=== PATIENT | male | born 1950 | race Caucasian/White ===

== ENCOUNTER 2017-02-07 23:45 | Emergency (ER) | payer OTHER ==
[~2017-02-07 23:45] MED LIST: ALTA2.5 PO; ALTA5 PO; AMB10 PO; ASAB PO; ASABAYER PO; EFFEXOR XR 75 M75 MG PO; EFFEXXR75 PO; FUROSEMIDE; GLUCOPHXR PO; GLUCPH PO; K-TABS10 MEQ PO; KDUR20 PO; KLOR-CON M2020 MEQ PO; L20 PO; L40 PO; LIPITOR40 PO; LIVALO PO; LOP50 PO; MAGOX4 PO; MIRAPEX250 PO; NITROSTAT0.4 MG SL; NORCO1 TAB PO; PLAVIX PO; RANEXA1000 MG PO; TOPXL50 PO; VYTORIN 10/40 T1 TAB PO; ZITHROMAX500 MG PO
== END 2017-02-08 03:09 | disposition home or self-care (01) ==
LOC: ER 23:45
DX: S82.832A Other fracture of upper and lower end of left fibula, initial encounter for closed fracture (principal); I50.9 Heart failure, unspecified; Z95.5 Presence of coronary angioplasty implant and graft; Z95.1 Presence of aortocoronary bypass graft; Z88.0 Allergy status to penicillin; Z88.5 Allergy status to narcotic agent; Z88.1 Allergy status to other antibiotic agents; Z79.82 Long term (current) use of aspirin; Z79.84 Long term (current) use of oral hypoglycemic drugs; W19.XXXA Unspecified fall, initial encounter
CPT/HCPCS: 73590-LT; 73610-LT; 99283; A9270-GY